=== PATIENT | male | born 1995 | race Caucasian/White ===

== ENCOUNTER 2018-08-08 15:13 | Emergency (ER) | payer OTHER ==
[~2018-08-08] VITALS: Ht 175.3 cm; Wt 67.1 kg
--- NOTE | 2018-08-08 15:20 | NUR ---
PT C/O RLE NUMBNESS AND TINGLING SENSATION X 4 DAYS. PT AOX4. PT IN BED 7 WITH FRIEND AT BEDSIDE. WILL CONTINUE TO MONITOR.
--- NOTE | 2018-08-08 16:00 | NUR ---
PHLEB AT BEDSIDE FOR BLOOD DRAW
[2018-08-08 16:11] LABS: BASOPHILS % (AUTO) 0.3 % (0.0-2.0); EOSINOPHILS % (AUTO) 1.9 % (0.0-6.0); HEMATOCRIT 37 % (39-51); HEMOGLOBIN 12.4 g/dL (13.5-17.5); LYMPHOCYTES % (AUTO) 27.4 % (20.0-44.0); MEAN CORPUSCULAR HGB CONC 34 g/dl (31.0-36.0); MEAN CORPUSCULAR VOLUME 88 fL (80-96); MONOCYTES # (AUTO) 0.6 /CMM (0.1-1.30); MONOCYTES % (AUTO) 8.8 % (2.0-12.0); NEUTROPHILS # (AUTO) 4.5 /CMM (1.8-8.9); NEUTROPHILS % (AUTO) 61.6 % (43.0-81.0); PLATELET COUNT (AUTO) 210 /CMM (150-450); RED BLOOD CELL COUNT(AUTO) 4.18 MIL/uL (4.5-6.0); WHITE BLOOD COUNT (AUTO) 7.2 K/uL (4.3-11.0)
[2018-08-08 16:27] LABS: ALBUMIN 3.2 g/dL (3.4-5.0); BILIRUBIN,TOTAL 0.2 mg/dL (0.2-1.0); CALCIUM, SERUM 8.4 mg/dL (8.5-10.1); CREATININE 0.6 mg/dL (0.6-1.3); POTASSIUM 3.7 mmol/L (3.5-5.1); TOTAL PROTEIN, SERUM 7.2 g/dL (6.4-8.2)
[2018-08-08] MEDS ORDERED: CT SWABBABLE VALVE TRANS SET 1 EA INFUS.SET MC ONE (16:37)
[2018-08-08] MEDS ORDERED: IOHEXOL-300 100 ML VIAL IV ONE (16:37)
[2018-08-08] MEDS ORDERED: IV NS 0.9% 250 ML IV ONE (16:37)
--- NOTE | 2018-08-08 17:57 | NUR ---
IV removed. Catheter intact and site benign. Pressure and 4x4 applied to site. No bleeding noted.Patient discharged to home in stable condition. Written and verbal after care instructions given. Patient verbalizes understanding of instruction.
[2018-08-08 17:58] VITALS: BP 140/71
== END 2018-08-08 17:58 | disposition home or self-care (01) ==
LOC: ER 15:16 → EDSEX 15:16 → ER 17:58
DX: M21.371 Foot drop, right foot (principal); F19.10 Other psychoactive substance abuse, uncomplicated; F17.200 Nicotine dependence, unspecified, uncomplicated
CPT/HCPCS: 36415; 72132-TC; 80053-TC; 85025-TC; A4606; J7050; Q9967

== ENCOUNTER 2018-08-15 18:45 | Emergency (ER) | payer SELFPAY ==
[~2018-08-15] VITALS: Ht 177.8 cm; Wt 68.0 kg
--- NOTE | 2018-08-15 18:53 | NUR ---
C/O L HAND PAIN AND SWELLING S/P HEROIN INJECTION X 3-4 DAYS AGO. PT IS GUARDING AND GRIMACING. CLEAR DRAINAGE COMING FROM ABSCESS. PT IS AOX4, AMBULATORY, TACHYCARDIC. RR EVEN AND UNLABORED. SKIN WARM DRY TO TOUCH. NO ACUTE DISTRESS NOTED. READY FOR EVAL.
[2018-08-15] MEDS ORDERED: VANCOMYCIN 1 GM in IV D5W 250 ML IV ONE (19:30)
[2018-08-15] MEDS ORDERED: VANCOMYCIN 1 GM VIAL ONE (19:41)
--- NOTE | 2018-08-15 20:14 | NUR ---
ATTEMPTING TO GET SALINE LOCK AND BLOOD DRAW. PT IS HARD STICK, APPEARS ANXIOUS AND FIDGETY.
[2018-08-15 20:38] VITALS: BP 115/78
[2018-08-15 20:44] LABS: BASOPHILS # (AUTO) 0.1 /CMM (0.0-0.2); BASOPHILS % (AUTO) 0.7 % (0.0-2.0); EOSINOPHILS % (AUTO) 1.2 % (0.0-6.0); HEMATOCRIT 35 % (39-51); HEMOGLOBIN 11.8 g/dL (13.5-17.5); LYMPHOCYTES # (AUTO) 2.6 /CMM (0.8-4.8); LYMPHOCYTES % (AUTO) 22.5 % (20.0-44.0); MEAN CORPUSCULAR HGB CONC 34 g/dl (31.0-36.0); MEAN CORPUSCULAR VOLUME 86 fL (80-96); MONOCYTES # (AUTO) 0.9 /CMM (0.1-1.30); MONOCYTES % (AUTO) 7.7 % (2.0-12.0); NEUTROPHILS # (AUTO) 7.9 /CMM (1.8-8.9); NEUTROPHILS % (AUTO) 67.9 % (43.0-81.0); PLATELET COUNT (AUTO) 284 /CMM (150-450); RED BLOOD CELL COUNT(AUTO) 4.01 MIL/uL (4.5-6.0); WHITE BLOOD COUNT (AUTO) 11.7 K/uL (4.3-11.0)
--- NOTE | 2018-08-15 20:45 | NUR ---
PT IV INFILTRATED. GWENO D/C'D. PT REFUSING ANOTHER SALINE LOCK. NOTIFIED NICKOLAS MOFFETT.
[2018-08-15 20:56] LABS: CALCIUM, SERUM 8.7 mg/dL (8.5-10.1); CREATININE 0.6 mg/dL (0.6-1.3); POTASSIUM 3.8 mmol/L (3.5-5.1)
[2018-08-15 21:02] LABS: ALBUMIN 3.3 g/dL (3.4-5.0); BILIRUBIN,DIRECT 0.1 mg/dL (0.0-0.2); BILIRUBIN,TOTAL 0.2 mg/dL (0.2-1.0); TOTAL PROTEIN, SERUM 7.8 g/dL (6.4-8.2)
[2018-08-15] MEDS ORDERED: CLINDAMYCIN HCL 150 MG CAPSULE PO ONE ×2 (21:15→22:30)
--- NOTE | 2018-08-15 22:03 | NUR ---
PT LEFT AMA WITH IV IN PLACE. CONTACTED [employer], SPOKE WITH GLUER MACHINE SETUP OPERATOR #[id number] WHO SENT OUT DISPATCH TO LOCAL [facility].
--- NOTE | 2018-08-15 23:48 | NUR ---
NICANOR JAMES OFFICER CALLED, REPORTED HE SPOKE WITH PT'S GIRLFRIEND WHO STATED PT REMOVED IV BEFORE LEAVING HOSPITAL. CHARGE NURSE NOTIFIED.
== END 2018-08-15 21:55 | disposition left against medical advice (07) ==
LOC: ER 18:45
DX: L03.114 Cellulitis of left upper limb (principal); F19.10 Other psychoactive substance abuse, uncomplicated
CPT/HCPCS: 36415; 80048-TC; 80076-TC; 83605-TC; 85025-TC; 87040-TC; J3370

== ENCOUNTER 2018-09-21 23:33 | Inpatient (IN) | payer OTHER ==
[~2018-09-21] VITALS: Ht 177.8 cm; Wt 60.8 kg
[2018-09-22] MEDS ORDERED: LIDOCAINE 1%-EPI 1:100,000 20 ML VIAL ONE (00:54)
[2018-09-22] MEDS ORDERED: VANCOMYCIN 1 GM in IV D5W 250 ML IV ONE (01:00)
[2018-09-22] MEDS ORDERED: LIDOCAINE 1%-EPI 1:100,000 20 ML VIAL TP ONE (01:00)
--- NOTE | 2018-09-22 01:00 | NUR ---
PT BIBSELF C/O PAIN AND REDDNESS ON LEFT UPPER ARM. NOTED SWELLING WITH YELLOW/BROWN DISCHARGE. PT DENIES FEVER. PT ADMITS TO IV DRUG USE. PT AAOX4. RESPIRATIONS EVEN AND UNLABORED. NO ACUTE DISTRESS NOTED. WILL CONTINUE TO MONITOR
--- NOTE | 2018-09-22 01:05 | NUR ---
IV INITIATED RIGHT UPPER ARM 20G. LABS DRAWN FROM SITE. METALLURGICAL ENGINEERING TECHNICIAN AT BEDSIDE FOR COLLECTION. IV INTACT AND PATENT
--- NOTE | 2018-09-22 01:08 | NUR ---
I&D SET UP BY BEDSIDE. MD JULIEN
[2018-09-22 01:17] LABS: BASOPHILS % (AUTO) 0.3 % (0.0-2.0); EOSINOPHILS % (AUTO) 0.7 % (0.0-6.0); HEMATOCRIT 37 % (39-51); HEMOGLOBIN 12.7 g/dL (13.5-17.5); LYMPHOCYTES # (AUTO) 2.4 /CMM (0.8-4.8); LYMPHOCYTES % (AUTO) 15.1 % (20.0-44.0); MEAN CORPUSCULAR HGB CONC 34 g/dl (31.0-36.0); MEAN CORPUSCULAR VOLUME 85 fL (80-96); MONOCYTES # (AUTO) 1.5 /CMM (0.1-1.30); MONOCYTES % (AUTO) 9.4 % (2.0-12.0); NEUTROPHILS % (AUTO) 74.5 % (43.0-81.0); PLATELET COUNT (AUTO) 347 /CMM (150-450); RED BLOOD CELL COUNT(AUTO) 4.39 MIL/uL (4.5-6.0); WHITE BLOOD COUNT (AUTO) 16.1 K/uL (4.3-11.0)
[2018-09-22] MEDS ORDERED: VANCOMYCIN 1 GM VIAL ONE (01:22)
[2018-09-22 01:30] LABS: ALBUMIN 3.3 g/dL (3.4-5.0); BILIRUBIN,DIRECT 0.1 mg/dL (0.0-0.2); BILIRUBIN,TOTAL 0.3 mg/dL (0.2-1.0); CALCIUM, SERUM 9.4 mg/dL (8.5-10.1); CREATININE 0.8 mg/dL (0.6-1.3); POTASSIUM 3.8 mmol/L (3.5-5.1); TOTAL PROTEIN, SERUM 8.9 g/dL (6.4-8.2)
--- NOTE | 2018-09-22 02:40 | NUR ---
AT BEDSIDE FOR I&D. WOUND CULTURE COLLECTED AND SENT TO LAB
--- NOTE | 2018-09-22 02:49 | NUR ---
PER VERBAL MD ORDER, ADMINISTERING DILAUDID 1MG IV X1 NOW
[2018-09-22] MEDS ORDERED: HYDROMORPHONE 1 MG/1 ML DISP.SYRIN ONE ×2 (02:50→03:15)
[2018-09-22] MEDS ORDERED: PIPERACILLIN /TAZOBACTAM 3.375 G in IV D5W 50 ML IV ONE (03:00)
[2018-09-22] MEDS ORDERED: HYDROMORPHONE 1 MG/1 ML DISP.SYRIN IV STA ×2 (03:10)
[2018-09-22] MEDS ORDERED: IV NS 0.9% 1,000 ML IV PRN (03:13)
--- NOTE | 2018-09-22 03:13 | NUR ---
GAVE REPORT TO NAVID SHIRLEY FOR PAGE
[2018-09-22] MEDS ORDERED: PIPERACILLIN /TAZOBACTAM 3.375 G VIAL IV ONE (03:15)
[2018-09-22] MEDS ORDERED: MAGNESIUM HYDROXIDE 30 ML UDC PO PRN (03:30)
[2018-09-22] MEDS ORDERED: HYDROCODONE/APAP 5/325MG 1 EACH TABLET PO PRN (03:30)
[2018-09-22] MEDS ORDERED: ACETAMINOPHEN 325 MG TABLET PO PRN (03:30)
[2018-09-22] MEDS ORDERED: HYDROMORPHONE INJ 2 MG/ML DISP.SYRIN IV PRN (03:30)
[2018-09-22] MEDS ORDERED: KETAMINE HCL (500MG/10ML) 50 MG/ML VIAL IV ONE (03:30)
[2018-09-22] MEDS ORDERED: MAG HYDROX/AL HYDROX/SIMETH 30 ML UDC PO PRN (03:30)
[2018-09-22] MEDS ORDERED: ZOLPIDEM TARTRATE 5 MG TABLET PO PRN (03:30)
[2018-09-22] MEDS ORDERED: ONDANSETRON HCL/PF 4 MG/2 ML VIAL IVP PRN (03:30)
[2018-09-22] MEDS ORDERED: KETAMINE HCL (500MG/10ML) 50 MG/ML VIAL ONE (03:35)
[2018-09-22] MEDS ORDERED: LORAZEPAM INJ 2 MG/ML VIAL ONE ×2 (03:41→03:55)
--- NOTE | 2018-09-22 03:47 | NUR ---
DR MCKAY AND RT AT BEDSIDE FOR MODERATE SEDATION
[2018-09-22] MEDS ORDERED: IV NS 0.9% 1,000 ML BAG IV ONE (04:00)
[2018-09-22] MEDS ORDERED: ONDANSETRON HCL/PF 4 MG/2 ML VIAL IV ONE (04:00)
[2018-09-22] MEDS ORDERED: LORAZEPAM INJ 2 MG/ML VIAL IV ONE (04:00)
[2018-09-22] MEDS ORDERED: ONDANSETRON HCL/PF 4 MG/2 ML VIAL ONE (04:03)
[2018-09-22] MEDS: LORAZEPAM INJ 2 MG/ML VIAL IV PRN ×2 (04:05→13:20)
--- NOTE | 2018-09-22 04:22 | NUR ---
PT RESTING COMFORTABLY IN BED. VITAL SIGNS STABLE. PT AAOX4. RESPIRATIONS EVEN AND UNLABORED. PT STILL ON CONTINUOUS MILLROOM SUPERVISOR AND PULSE OX. WILL CONTINUE TO MONITOR.
--- NOTE | 2018-09-22 04:41 | NUR ---
TRANSFERRED PT PER ACLS PROTOCOL
--- NOTE | 2018-09-22 05:00 | NUR ---
RN NOTES RECEIVED PT. FROM ER WITH DX. OF LEFT ARM CELLULITIS WITH ABSCESS, S/P I & D DONE IN ER , PT. LEFT ARM WRAPPED WITH KERLIX, GIRLFRIEND AT BEDSIDE. DENIES PAIN AT THIS TIME, NO SOB, ADMISSION INSTRUCTION WAS GIVEN, CALL LIGHT WITHIN REACH, DRY AND INTACT, CONTINUE TO MONITOR
[2018-09-22 05:03] VITALS: BP 128/73
[2018-09-22] MEDS ORDERED: LORAZEPAM 1 MG TABLET PO PRN (05:30)
[2018-09-22] MEDS ORDERED: PIPERACILLIN /TAZOBACTAM 3.375 G in IV D5W 50 ML IV SCH (06:00)
--- NOTE | 2018-09-22 06:00 | NUR ---
RN NOTES ZOSYN 3.375MG IV WAS NOT GIVEN .. PT URIELT RECEIVED ZOSYN 3.375IV IN ER 2 HOURS AGO
--- NOTE | 2018-09-22 06:43 | NUR ---
RN NOTES SLEEPING BUT AROUSSABLE, DENIES PAIN, NO SOB, PT. NEEDS ATTENDED
--- NOTE | 2018-09-22 07:00 | NUR ---
RN OPENING NOTES PT RESTING IN BED. SLEEPING BUT AROUSES EASILY. NO COMPLAINTS OF PAIN, SOB OR DISTRESS AT THIS TIME. PT HAS A RIGHT AC #18 RUNNING NS @75ML/HR, PT TOLERATING WELL. PT S/P I&D IN ER, DRESSING INTACT. SAFETY PRECAUTIONS IN PLACE, BED IN LOWEST LOCKED POSITION, X2 SIDERAILS UP AND CALL LIGHT WITHIN REACH. WILL CONTINUE TO MONITOR.
[2018-09-22 08:00] VITALS: BP 97/52
[2018-09-22] MEDS ORDERED: FEE PK DOSING 1 MIN EA MC ONE (08:10)
[2018-09-22] MEDS: VANCOMYCIN 1.25 GM in IV D5W 500 ML IV SCH ×2 (09:38→16:28)
--- NOTE | 2018-09-22 10:05 | NUR ---
WOUND CARE CONSULT: PT PRESENTS WITH LEFT ARM ABSCESSES X 2 S/P I&D IN E.R. LARGE AMOUNT OF PINK DRAINAGE NOTED ON OLD DRESSING. RECOMMEND SURGICAL FOLLOW UP. PT REFUSED TO HAVE PACKING REMOVED BUT ONE OF THE IODOFORM PACKING STRIPS WAS DISLODGED UPON DRESSING CHANGE. WILL SEE PRN.
--- NOTE | 2018-09-22 10:30 | NUR ---
RN NOTES PT STATED THAT HE WAS WITHDRAWING. WILL ADMINISTER ATIVAN AND CONTINUE TO MONITOR.
[2018-09-22] MEDS: PIPERACILLIN /TAZOBACTAM 3.375 G in IV D5W 100 ML IV SCH ×2 (10:32→17:13)
[2018-09-22] MEDS ORDERED: SILVER NITRATE APPLICATOR 1 EA BOX TP ONE (12:30)
[2018-09-22] MEDS ORDERED: LIDOCAINE 2%-EPI 1:100,000 30 ML VIAL TP ONE (12:30)
[2018-09-22] MEDS ORDERED: HYDROMORPHONE INJ 0.5 MG/0.5 ML SYRINGE IV ONE (13:00)
--- NOTE | 2018-09-22 13:00 | NUR ---
RN NOTES PT STATED THAT HE HAD CHILLS AND STATED HE WAS WITHDRAWING. WILL ADMINISTER ATIVAN AND CONTINUE TO MONITOR.
[2018-09-22 16:00] VITALS: BP 115/68
--- NOTE | 2018-09-22 16:10 | NUR ---
Social service consult requested by NICKOLAS Lucio for abscess and heroin abuse. Pt. is a 23 year old male who was admitted to [facility] for cellulitis. SW attempted to assess pt. bedside, however pt. was asleep and not easily waking up. SW will assess pt. tomorrow when he is more alert.
--- NOTE | 2018-09-22 18:09 | NUR ---
RN NOTES After wound debridement of the patient's left upper arm, performed by Dr Alberto. Patient stated that he did not want to stay in the hospital anymore. Per the patient, he will be going into rehab tomorrow and he will keep his wound clean and that he did not feel like he needed to be here at the hospital to receive antibiotics. it was explained to the patient the importance of medication compliance. The patient stated he understand and wanted to leave against medical advice regardless. Pt signed AMA paperwork and discharge paper work was made available to him.
[2018-09-22] MEDS ORDERED: DAKINS QUARTER STRENGTH (0.125%) 480 ML BOTTLE TOP SCH (18:30)
--- NOTE | 2018-09-22 18:38 | NUR ---
RN NOTES PT LEFT UNIT AGAINST MEDICAL ADVICE AT 1838. PT AMBULATED OFF THE UNIT. ALL DISCHARGE PAPERWORK MADE AVAILABLE TO PATIENT. BOTH IVS REMOVED BEFORE PATIENT LEFT UNIT. PER PATIENT HIS GIRLFRIEND WAS GOING TO PICK HIM UP.
--- NOTE | 2018-09-23 10:00 | NUR ---
SW was informed by Med Surg 3 GANESH Guajardo that pt. left AMA last night after debridement. SW was unable to complete assessment.
== END 2018-09-22 18:38 | disposition left against medical advice (07) | DRG 580 ==
LOC: ER 23:36 → MED 09-22 03:02 → TELE 09-22 05:43 → MED 09-22 08:49
PROC: 0KB80ZZ Excision of Left Upper Arm Muscle, Open Approach (ICD-10-PCS; principal; 2018-09-22)
DX: L03.114 Cellulitis of left upper limb (principal); F11.20 Opioid dependence, uncomplicated; L02.414 Cutaneous abscess of left upper limb; F17.210 Nicotine dependence, cigarettes, uncomplicated; D72.829 Elevated white blood cell count, unspecified
CPT/HCPCS: 36415; 73060-TC; 80048-TC; 80076-TC; 80305; 83605-TC; 85025-TC; 87040-TC; 87070-TC; 87081-TC; A6253; A6402; A6403; A6407; G0378; G0480; G0500; J1170; J2060; J2405; J2543; J3370; J3490; J7030; J7060

== ENCOUNTER 2019-07-07 16:30 | Inpatient (IN) | payer OTHER ==
[~2019-07-07] VITALS: Ht 177.8 cm; Wt 66.7 kg
--- NOTE | 2019-07-07 12:53 | NUR ---
STATIONS SUPERINTENDENT MS NOTES RECEIVED PT FROM ER 1253. SAFETY TRANSFERRED TO BED. BREATHING EVEN AND UNLABORED ON ROOM AIR. IV ON LAC #22G WITH VANCOMYCIN RUNNING. CLEAN DRY AND INTACT, SHOWS NO SIGNS OF REDNESS, NO INFILTRATION. ADMITTED FOR LEFT FOREARM ABSCESS, SKIN RED, AT THIS TIME NOT CURRENTLY DRAINING AND SCAB PRESENT. MED RECON DONE. BELONGINGS LIST DONE. PHOTOS TAKEN AND PLACED IN CHART. ORIENTED TO STAFF, CALL LIGHT AND KEPT WITHIN REACH. SAFETY PRECAUTION IN PLACE. BED IN LOWEST POSITION, LOCKED. ALL NEEDS ATTENDED AT THIS TIME. WILL CONTINUE TO MONITOR AND FOLLOW MD ORDERS. Addendum: 07/08/19 at 0524 by ISAMAR AVILES RN CLARIFICATION OF NOTES CORRECT TIME WAS 2052
--- NOTE | 2019-07-07 17:10 | NUR ---
ABSCESS RE-CHECK,FOR POSSIBLE I & d, ON KEFLEX AND BACTRIM. PT AAOX4, VSS. DENIES CP, SOB, DIZZINESS, N/V AT THIS TIME. PT SEEN & EVAL'D BY EREN MANRIQUEZ. WILL CONT TO MONITOR.
[2019-07-07] MEDS ORDERED: VANCOMYCIN HCL 1.25 GM in IV D5W 260 ML IV ONE (17:30)
[2019-07-07] MEDS ORDERED: PIPERACILLIN /TAZOBACTAM 3.375 G in IV D5W 50 ML IV ONE (17:30)
[2019-07-07 18:08] LABS: BASOPHILS # (AUTO) 0.1 /CMM (0.0-0.2); BASOPHILS % (AUTO) 0.4 % (0.0-2.0); EOSINOPHILS % (AUTO) 0.3 % (0.0-6.0); HEMATOCRIT 42 % (39-51); HEMOGLOBIN 13.8 g/dL (13.5-17.5); LYMPHOCYTES % (AUTO) 14.6 % (20.0-44.0); MEAN CORPUSCULAR HGB CONC 33 g/dl (31.0-36.0); MEAN CORPUSCULAR VOLUME 87 fL (80-96); MONOCYTES # (AUTO) 0.9 /CMM (0.1-1.30); MONOCYTES % (AUTO) 6.9 % (2.0-12.0); NEUTROPHILS # (AUTO) 10.4 /CMM (1.8-8.9); NEUTROPHILS % (AUTO) 77.8 % (43.0-81.0); PLATELET COUNT (AUTO) 370 /CMM (150-450); RED BLOOD CELL COUNT(AUTO) 4.78 MIL/uL (4.5-6.0); WHITE BLOOD COUNT (AUTO) 13.4 K/uL (4.3-11.0)
[2019-07-07 18:17] LABS: CALCIUM, SERUM 9.5 mg/dL (8.5-10.1); CREATININE 0.7 mg/dL (0.6-1.3); POTASSIUM 4.3 mmol/L (3.5-5.1)
[2019-07-07] MEDS ORDERED: IOHEXOL-300 100 ML VIAL IV ONE (18:27)
[2019-07-07] MEDS ORDERED: CT SWABBABLE VALVE TRANS SET 1 EA INFUS.SET MC ONE (18:27)
[2019-07-07] MEDS ORDERED: IV NS 0.9% 250 ML IV ONE (18:27)
--- NOTE | 2019-07-07 19:33 | NUR ---
CALLED NURSING FOR M/S BED.
--- NOTE | 2019-07-07 20:00 | NUR ---
PT GOING TO 304-1.
--- NOTE | 2019-07-07 20:06 | NUR ---
PAGED [facility].
--- NOTE | 2019-07-07 20:47 | NUR ---
REPORT GIVEN TO CASPER PENN FOR PAGE
[2019-07-07 20:53] VITALS: BP 146/87
--- NOTE | 2019-07-07 20:53 | NUR ---
CHOPPING MACHINE OPERATOR MS NOTES RECEIVED PT FROM ER 2052. SAFETY TRANSFERRED TO BED. BREATHING EVEN AND UNLABORED ON ROOM AIR. IV ON LAC #22G WITH VANCOMYCIN RUNNING. CLEAN DRY AND INTACT, SHOWS NO SIGNS OF REDNESS, NO INFILTRATION. ADMITTED FOR LEFT FOREARM ABSCESS, SKIN RED, AT THIS TIME NOT CURRENTLY DRAINING AND SCAB PRESENT. MED RECON DONE. BELONGINGS LIST DONE. PHOTOS TAKEN AND PLACED IN CHART. ORIENTED TO STAFF, CALL LIGHT AND KEPT WITHIN REACH. SAFETY PRECAUTION IN PLACE. BED IN LOWEST POSITION, LOCKED. ALL NEEDS ATTENDED AT THIS TIME. WILL CONTINUE TO MONITOR AND FOLLOW MD ORDERS.
[2019-07-07] MEDS ORDERED: QUET100T PO (21:41)
[2019-07-07] MEDS ORDERED: LITH150C PO (21:41)
[2019-07-07] MEDS ORDERED: NICO-627 TD (21:41)
[2019-07-07] MEDS ORDERED: Z GUARD REMEDY 2 OZ OINT TP PRN (22:00)
[2019-07-07] MEDS ORDERED: MAGNESIUM HYDROXIDE 30 ML UDC PO PRN (22:00)
[2019-07-07] MEDS ORDERED: ONDANSETRON HCL/PF 4 MG/2 ML VIAL IVP PRN (22:00)
[2019-07-07] MEDS ORDERED: ZOLPIDEM TARTRATE 5 MG TABLET PO PRN (22:00)
[2019-07-07] MEDS ORDERED: CEFTRIAXONE 2 G in IV D5W 100 ML IV SCH (22:00)
[2019-07-07] MEDS ORDERED: MAG HYDROX/AL HYDROX/SIMETH 30 ML UDC PO PRN (22:00)
[2019-07-07] MEDS ORDERED: ACETAMINOPHEN 325 MG TABLET PO PRN (22:00)
[2019-07-07] MEDS ORDERED: CEFTRIAXONE 1 G VIAL ONE (22:32)
[2019-07-07] MEDS: KETOROLAC TROMETHAMINE INJ 30 MG/ML VIAL IV PRN (22:33)
--- NOTE | 2019-07-07 22:33 | NUR ---
MS RN NOTES PATIENT RECEIVED 15MG TORADOL, COMPLAINING OF PAIN ON TEETH, HEAD, AND LEFT ARM. PAIN RATING 7/10. WILL CONTINUE TO MONITOR EFFECTIVENESS OF MEDICATION.
[2019-07-07] MEDS: IV NS 0.9% 1,000 ML IV PRN (22:39)
[2019-07-08] MEDS: KETOROLAC TROMETHAMINE INJ 30 MG/ML VIAL IV PRN ×2 (04:35→20:13)
--- NOTE | 2019-07-08 04:36 | NUR ---
MS RN PATIENT RECEIVED 15MG OF TORADOL 15MG IV. PATIENT COMPLAINED OF PAIN 6/10. WILL MONITOR EFFECTIVENESS OF MEDICATION.
--- NOTE | 2019-07-08 05:24 | NUR ---
RN MS NOTES PATIENT REFUSED TO HAVE BLOOD DRAWN FOR LABS DESPITE EDUCATION.
--- NOTE | 2019-07-08 06:39 | NUR ---
MS RN CLOSING NOTES PATIENT IN BED, ASLEEP, ALERT AND ORIENTED X 4. BREATHING EVEN AND UNLABORED ON ROOM AIR. REMAINED NPO SINCE MIDNIGHT. DENIES ACUTE PAIN, DISPLAYS NO ACUTE RESPIRATORY DISTRESS. IV LAC #22G RUNNING NS 75ML/HR, CLEAN DRY AND INTACT. SHOWS NO SIGNS OF INFILTRATION, NO REDNESS. ALL DUE MEDICATION GIVEN ORDERED. NO ADVERSE REACTION NOTED. SAFETY PRECAUTION IN PLACE. ALL NEEDS WERE ATTENDED. WILL ENDORSE TO NEXT SHIFT.
[2019-07-08] MEDS ORDERED: FEE PK DOSING 1 MIN EA MC ONE (06:50)
[2019-07-08 08:00] VITALS: BP 103/56
--- NOTE | 2019-07-08 08:00 | NUR ---
RN MS AM NOTES RECEIVED PT BREATHING EVEN AND UNLABORED ON ROOM AIR. IV ON LAC #22G IVF NS AT 75 ML/HR INFUSING WELL .CLEAN DRY AND INTACT, SHOWS NO SIGNS OF REDNESS, NO INFILTRATION. ADMITTED FOR LEFT FOREARM ABSCESS, SKIN RED, AT THIS TIME NOT CURRENTLY DRAINING AND SCAB PRESENT. CALL LIGHT AND KEPT WITHIN REACH. SAFETY PRECAUTION IN PLACE. PT STATED THAT HE NEEDS TO SEE THE SURGEON BRANDON OR HE WILL GO AMA.BED IN LOWEST POSITION, LOCKED. WILL CONTINUE TO MONITOR
[2019-07-08] MEDS: VANCOMYCIN 1.25 GM in IV D5W 250 ML IV SCH ×2 (08:36→16:05)
[2019-07-08] MEDS: NICOTINE PATCH (21MG) 21 MG PATCH.TD24 TD SCH (08:36)
[2019-07-08] MEDS ORDERED: LIDOCAINE 2%-EPI 1:100,000 30 ML VIAL TP STA (09:00)
--- NOTE | 2019-07-08 10:51 | NUR ---
WOUND CARE CONSULT: PT FOLLOWED BY GENERAL SURGERY TEAM FOR ABSCESS. DEFER TO SURGICAL TEAM FOR WOUND TREATMENT PLAN. WILL SEE PRN.
--- NOTE | 2019-07-08 11:00 | NUR ---
INCISION AND DRAINAGE OF LFA ABSCESS WAS DONE BY NICKOLAS CORDOVA AT THE BEDSIDE.PT TOLERATED WELL.APPLIED IODOFORM PACKING STRIPS AND COVERED WITH DRY DRESSING.WITH TX ORDERS.
[2019-07-08 11:15] LABS: BILIRUBIN,TOTAL 0.2 mg/dL (0.2-1.0); CALCIUM, SERUM 9.6 mg/dL (8.5-10.1); CREATININE 0.7 mg/dL (0.6-1.3); MAGNESIUM 2.4 mg/dL (1.8-2.4); PHOSPHORUS 3.8 mg/dL (2.5-4.9); POTASSIUM 4.9 mmol/L (3.5-5.1); TOTAL PROTEIN, SERUM 9.3 g/dL (6.4-8.2)
[2019-07-08 11:29] LABS: BASOPHILS % (AUTO) 0.2 % (0.0-2.0); EOSINOPHILS % (AUTO) 0.5 % (0.0-6.0); HEMATOCRIT 48 % (39-51); HEMOGLOBIN 15.8 g/dL (13.5-17.5); LYMPHOCYTES % (AUTO) 20.1 % (20.0-44.0); MEAN CORPUSCULAR HGB CONC 33 g/dl (31.0-36.0); MEAN CORPUSCULAR VOLUME 89 fL (80-96); MONOCYTES # (AUTO) 0.6 /CMM (0.1-1.30); MONOCYTES % (AUTO) 6.4 % (2.0-12.0); NEUTROPHILS # (AUTO) 7.3 /CMM (1.8-8.9); NEUTROPHILS % (AUTO) 72.8 % (43.0-81.0); PLATELET COUNT (AUTO) 290 /CMM (150-450); RED BLOOD CELL COUNT(AUTO) 5.45 MIL/uL (4.5-6.0)
[2019-07-08] MEDS: DAKINS HALF STRENGTH (0.25%) 480 ML BOTTLE TOP SCH (12:04)
[2019-07-08 16:00] VITALS: BP 132/76
[2019-07-08] MEDS: HYDROCODONE/APAP 5/325MG 1 EACH TABLET PO PRN (16:21)
[2019-07-08] MEDS ORDERED: QUETIAPINE FUMARATE 100 MG TABLET PO SCH (18:00)
--- NOTE | 2019-07-08 19:02 | NUR ---
CALLED PHARMACIST AND CLARIFY IF PT TAKING LITHIUM IN [facility] AND OUR TORADOL DOESN'T CONTRADICT WITH EACH OTHER,PT'S LITHIUM LEVEL TODAY WAS LOW 0.30 AND PT'S LITHIUM PO WAS HELD UPON ADMISSION, PHARMACIST STATED ITS OK TO ADMINISTER TORADOL.
--- NOTE | 2019-07-08 19:15 | NUR ---
MS PM OPENING NOTES BEDSIDE REPORT RECIEVED FROM SERINA SHIRLEY. PT BREATHING EVEN AND UNLABORED ON ROOM AIR. IV ON LAC #22G IVF NS AT 75 ML/HR INFUSING WITH NO S/S OF INFILTRATION.PT HAD I AND D TODAY AND DRESSING TO LEFT FA CLEAN DRY AND INTACT, PATIENT REPORTS PAIN TO LEFT FA RATED 6/10 REVIEWED PAIN MANAGEMENT PLAN WITH PATIENT VERBALIZED UNDERSTANDING. CALL LIGHT KEPT WITHIN REACH. SAFETY PRECAUTION IN PLACE. BED IN LOWEST POSITION, LOCKED. WILL CONTINUE TO MONITOR.
--- NOTE | 2019-07-08 19:43 | NUR ---
shelbi on oct misdosed due 07/07 possible duplicate listing
[2019-07-08 20:36] VITALS: BP 115/67
[2019-07-09] MEDS: VANCOMYCIN 1.25 GM in IV D5W 250 ML IV SCH ×3 (00:43→08:31)
[2019-07-09] MEDS: IV NS 0.9% 1,000 ML IV PRN (00:46)
--- NOTE | 2019-07-09 06:30 | NUR ---
MS RN CLOSING NOTES PT BREATHING EVEN AND UNLABORED ON ROOM AIR. IV ON LAC #22G IVF NS AT 75 ML/HR INFUSING WITH NO S/S OF INFILTRATION.CALL LIGHT KEPT WITHIN REACH. SAFETY PRECAUTION IN PLACE. BED IN LOWEST POSITION, LOCKED. WILL CONTINUE TO MONITOR.
[2019-07-09 07:46] LABS: CREATININE 0.8 mg/dL (0.6-1.3); POTASSIUM 4.4 mmol/L (3.5-5.1)
[2019-07-09 08:00] VITALS: BP 113/62
--- NOTE | 2019-07-09 08:00 | NUR ---
MS RN AM OPENING NOTES RECEIVED PT AXO X4.BREATHING EVEN AND UNLABORED ON ROOM AIR. IV ON LAC #22G IVF NS AT 75 ML/HR INFUSING WITH NO S/S OF INFILTRATION.PT HAD I AND D YESTERDAY WITH DRESSING TO LEFT FA CLEAN DRY AND INTACT, WILL DO PAIN MGT NEEDED.DENIES ANY DISCOMFORT AT THIS TIME.CALL LIGHT KEPT WITHIN REACH. SAFETY PRECAUTION IN PLACE. BED IN LOWEST POSITION, LOCKED. WILL CONTINUE TO MONITOR.
[2019-07-09] MEDS: NICOTINE PATCH (21MG) 21 MG PATCH.TD24 TD SCH (08:31)
[2019-07-09] MEDS: DAKINS HALF STRENGTH (0.25%) 480 ML BOTTLE TOP SCH (08:32)
[2019-07-09] MEDS ORDERED: SULF1TAB48 PO (08:34)
--- NOTE | 2019-07-09 08:46 | NUR ---
HELD VANCO IV-VANCO LEVEL IS HIGH 26
[2019-07-09] MEDS: HYDROCODONE/APAP 5/325MG 1 EACH TABLET PO PRN (11:05)
--- NOTE | 2019-07-09 12:48 | NUR ---
DISCHARGED PT TO [facility].REPORT CALLED IN TO LAUREN NGUYEN OF [facility] .WITH STABLE V/S.DENYING ANY PAIN NOR DISTRESS. IV H/L REMOVED TO [facility] WITH NO BLEEDING OR SWELLING NOTED ON THE SITE.DISCHARGE INSTRUCTIONS GIVEN TO WENDY AND PT WELL.
== END 2019-07-09 12:30 | disposition home or self-care (01) | DRG 581 ==
LOC: ER 16:30 → MED 20:08
PROVIDERS: ADMIT Hospitalist; ATTEND Internal Medicine
PROC: 0J9H0ZZ Drainage of Left Lower Arm Subcutaneous Tissue and Fascia, Open Approach (ICD-10-PCS; principal; 2019-07-08)
DX: L02.414 Cutaneous abscess of left upper limb (principal); D72.829 Elevated white blood cell count, unspecified; F11.10 Opioid abuse, uncomplicated; F17.210 Nicotine dependence, cigarettes, uncomplicated
CPT/HCPCS: 36415; 80048-TC; 80053-TC; 80061-TC; 80202-TC; 83605-TC; 83735-TC; 84100-TC; 85025-TC; 85730-TC; 87040-TC; 87070-TC; 87081-TC; A6253; A6403; A6407; G0378; J0696; J1885; J2543; J3370; J3490; J7030; J7050; J7060; Q9967